=== PATIENT | male | born 1980 | race Caucasian/White ===

== ENCOUNTER → 2021-03-19 13:42 | Outpatient (CLI) | payer OTHER, SELFPAY | PROVIDERS: Visit Provider Family Medicine | DX: M54.50 Low back pain, unspecified (principal) | CPT/HCPCS: 87086 ==

== ENCOUNTER 2021-05-06 14:50 | Emergency (ER) | payer OTHER, SELFPAY ==
[2021-05-06 14:51] VITALS: BP 133/92; PULSE 106; RESP 18; TEMP 36.9; O2SAT 99; BMI 37.0
--- NOTE | 2021-05-06 14:57 | ECG_ITS ---
APPROVED REPORT Exam: Resting ECG HR:99 bpm ECG Measurements Heart Rate 99 AXES MA 146 P 39 QRSd 78 QRS 13 QT 326 T 83 QTc 418 Conclusion Normal sinus rhythm Possible Left atrial enlargement Low voltage QRS Cannot rule out Anterior infarct, age undetermined Abnormal ECG Electronically signed by : Josh Humphreys MD 05/06/2021 21:04:02
--- NOTE | 2021-05-06 15:09 | CT_ITS ---
PROCEDURE: CT ANGIO CHEST CLINCIAL INDICATION: chest pain radiating to back COMPARISON: No exams were available for comparison TECHNIQUE: IV Contrast: 70ML Isovue 370 Axial images obtained with sagittal and coronal reformats. All CT scans at the facility use one or more dose reduction, viz: automated exposure control, ma/kV adjustment per patient size (including targeted exams where dose is matched to indication, i.e. head), or iterative reconstruction technique. FINDINGS: HEART AND MEDIASTINAL STRUCTURES: No evidence of pulmonary embolus, aortic aneurysm, or aortic dissection. No mediastinal or hilar mass or adenopathy LUNGS AND PLEURAL SPACES: No lobar consolidation or collapse. Calcified granuloma is present in the right upper lobe. Subpleural opacity is present in the right CP angle posteriorly nonspecific measuring approximately 6 mm. Calcified granuloma left lower lobe. No suspicious pulmonary nodule. BONY STRUCTURES: Mild degenerative change thoracic spine UPPER ABDOMEN: Fatty liver. The gallbladder is slightly distended. ADDITIONAL FINDINGS: No other significant abnormalities. IMPRESSION: No acute finding. No evidence of aortic dissection. 6 mm subpleural opacity right costophrenic angle posteriorly. Consider 12 month follow-up to confirm stability. Mildly distended gallbladder. Dictated by: Pop Terry MD 05/06/2021 16:10 Pop Terry MD in [place] 05/06/2021 16:10
[2021-05-06 15:15] LABS: Basophils # 0.2 K/mm3 (0-0.2); Basophils % 1.8 % (0.1-2.0); Eosinophils # 0.1 K/mm3 (0.0-0.4); Eosinophils % 1.4 % (0.1-12.0); Hematocrit 49.7 % (42.0-52.0); Hemoglobin 17.8 g/dL (14.1-18.0); Lymphocytes # 2.2 K/mm3 (0.7-4.5); Lymphocytes % 21.6 % (10-50); Mean Corpuscular HGB Conc 35.8 g/dL (31.8-35.4); Mean Corpuscular Hemoglobin 32.4 pg (27.0-31.2); Mean Corpuscular Volume 90.6 fl (80-94); Mean Platelet Volume 7.4 fl (7.4-10.4); Monocytes # 0.6 K/mm3 (0.1-1.0); Monocytes % 6.2 % (1.7-9.3); Neutrophils # 6.9 K/mm3 (1.8-7.8); Neutrophils % 68.9 % (37.0-80.0); Platelet Count 377 K/mm3 (142-424); Red Blood Count 5.49 M/mm3 (4.60-6.20); Red Cell Distribution Width 13.4 % (11.5-17.5); White Blood Count 10.1 K/mm3 (4.8-10.8)
[2021-05-06 15:24] LABS: Chloride 103 mmol/L (98-107); Potassium 4.3 mmoL/L (3.5-5.1); Sodium 140 mmol/L (136-145)
[2021-05-06 15:26] LABS: Alanine Aminotransferase 77 U/L (12-78); Aspartate Amino Transferase 55 U/L (17-59); Blood Urea Nitrogen 19 mg/dl (9-20); Creatinine Clearance Estimated 193 mL/min (50-200); Estimated Glomerular Filt Rate 82 ml/min (>60); GFR (African American) 99 ML/MIN (>60)
[2021-05-06 15:27] LABS: Albumin Level 4.7 g/dl (3.5-5.0); Albumin/Globulin Ratio 1.4 (1.1-1.8); Alkaline Phosphatase 69 U/L (38-126); Anion Gap 13.3 mEq/L (5-15); Bilirubin,Total 0.3 mg/dl (0.2-1.3); Calcium 9.6 mg/dl (8.4-10.2); Carbon Dioxide 28 mmol/L (22.0-30.0); Globulin 3.4 g/dL (1.3-3.2); Glucose 109 mg/dl (74-100); Total Protein,Serum 8.1 g/dl (6.3-8.2)
--- NOTE | 2021-05-06 15:33 | HMH.EDGENADL ---
ED Disposition Clinical Impression: Lung nodule Back pain Qualifiers: Back pain location: thoracic back pain Chronicity: acute Back pain laterality: midline Qualified Code(s): M54.6 - Pain in thoracic spine Disposition: Home, Self-Care Condition on Discharge: Good Additional Instructions: Follow-up with your primary care physician with the next 1 to 3 days, you will need to obtain repeat surveillance imaging on the lung nodule that was noted on today's CT scan of your chest. Okay to take Tylenol, Motrin as needed for pain. Return to ED with new, worsening, concerning symptoms. Referrals: Dk Fraser MD [Primary Care Provider] - - Critical Care Critical Care Time: No Attestation: On 05/06/21, the high probability of a clinically significant, sudden or life threatening deterioration of the following system(s) required my full and direct attention, intervention and personal management. The time I documented below is in addition to time spent performing reported procedures but includes the following listed in this critical care notation. Medical Decision Making - Medical Records Medical records reviewed: Yes: I reviewed the patient's medical records. - Jalil Inquiry Pt receiving controlled substance: No Vital Signs: 05/06/21 14:51 05/06/21 16:12 05/06/21 16:30 Temperature 98.5 F Temperature Source Oral Pulse Rate 95 H 94 H Pulse Rate [Left Radial] 106 H Respiratory Rate 18 16 18 Blood Pressure 149/94 H 150/99 H Blood Pressure [Right Arm] 133/92 H Blood Pressure Mean 109 Blood Pressure Mean [Right Arm] 105 Blood Pressure Source [Right Arm] Automatic Cuff Blood Pressure Position [Right Arm] Sitting 02 Sat by Pulse Oximetry 99 97 98 Oxygen Delivery Method Room Air 05/06/21 17:00 05/06/21 19:10 Temperature 98.5 F Temperature Source Pulse Rate 96 H 96 H Pulse Rate [Left Radial] Respiratory Rate 18 18 Blood Pressure 141/95 H 141/95 H Blood Pressure [Right Arm] Blood Pressure Mean 104 Blood Pressure Mean [Right Arm] Blood Pressure Source [Right Arm] Blood Pressure Position [Right Arm] 02 Sat by Pulse Oximetry 97 Oxygen Delivery Method Room Air - Lab Data Lab Results 05/06/21 15:00: WBC 10.1, RBC 5.49, Hgb 17.8, Hct 49.7, MCV 90.6, MCH 32.4 H, MCHC 35.8 H, RDW 13.4, Plt Count 377, MPV 7.4, Neut % (Auto) 68.9, Lymph % (Auto) 21.6, [place] % (Auto) 6.2, Eos % (Auto) 1.4, Baso % (Auto) 1.8, Neut # (Auto) 6.9, Lymph # (Auto) 2.2, [place] # (Auto) 0.6, Eos # (Auto) 0.1, Baso # (Auto) 0.2 05/06/21 15:00: Sodium 140, Potassium 4.3, Chloride 103, Carbon Dioxide 28, Anion Gap 13.3, BUN 19, Creatinine 1.00, Estimated Creat Clear 193, Estimated GFR 82, Est GFR ( Amer) 99, Glucose 109 H, Calcium 9.6, Total Bilirubin 0.3, AST 55, ALT 77, Alkaline Phosphatase 69, Troponin I < 0.01, NT-Pro-B Natriuret Pep 12.0, Total Protein 8.1, Albumin 4.7, Globulin 3.4 H, Albumin/Globulin Ratio 1.4 Result diagrams: 05/06/21 15:00 05/06/21 15:00 Orders (Tests/Meds): ED MEDICATIONS Discontinued Medications Generic Name Dose Route Start Last Admin Trade Name Freq PRN Reason Stop Dose Admin Iopamidol 100 ml 05/06/21 15:51 05/06/21 15:51 Iopamidol-370 (76%);100ml Bottle IV 05/06/21 15:52 100 ml ONCE ONE Administration Ketorolac Tromethamine 30 mg 05/06/21 17:09 05/06/21 17:20 Ketorolac 30mg/Ml Vial IV 05/06/21 17:10 30 mg ONCE ONE Administration Ondansetron HCl 4 mg 05/06/21 15:13 05/06/21 17:20 Ondansetron 4mg/2ml Vial IV 06/05/21 15:12 4 mg ONCE PRN Administration nausea Sodium Chloride 50 ml 05/06/21 15:51 05/06/21 15:52 0.9 % Sodium Chloride 50 Ml Vial IV 05/06/21 15:52 50 ml ONCE ONE Administration Sodium Chloride 10 ml 05/06/21 15:51 05/06/21 15:51 Sodium Chloride 0.9% 10ml Syr (Rad Only) IV 05/06/21 15:52 10 ml ONCE ONE Administration - CT Data CT Scan: Chest Time Received: 16:[address] Reviewed: Yes:
[2021-05-06 15:45] LABS: Troponin I < 0.01 ng/ml (0.00-0.034)
[2021-05-06 16:12] VITALS: BP 149/94; PULSE 95; RESP 16; O2SAT 97
[2021-05-06 16:30] VITALS: BP 150/99; PULSE 94; RESP 18; O2SAT 98
[2021-05-06 17:00] VITALS: BP 141/95; PULSE 96; RESP 18; O2SAT 97
--- NOTE | 2021-05-06 17:35 | PC.NURSE ---
PT AMBULATED UP TO BATHROOM
[2021-05-06 19:10] VITALS: BP 141/95; PULSE 96; RESP 18; TEMP 36.9; O2SAT 97
== END 2021-05-06 19:12 | disposition home or self-care (01) ==
PROVIDERS: Emergency Provider Emergency Medicine; PCP Family Medicine
DX: R91.1 Solitary pulmonary nodule (principal); M54.6 Pain in thoracic spine; K21.9 Gastro-esophageal reflux disease without esophagitis; I10 Essential (primary) hypertension; F41.9 Anxiety disorder, unspecified
CPT/HCPCS: 71275; 80053; 83880; 84484; 85025; 93005; 96374; 96375; 99282; J2405; Q9967

== ENCOUNTER 2025-01-27 10:28 | Outpatient (CLI) | payer OTHER, SELFPAY ==
[2025-01-27 15:18] LABS: Hematocrit 47.9 % (42.0-52.0); Hemoglobin 16.6 g/dL (14.1-18.0); Immature Granulocytes % 0.5 %; Mean Corpuscular HGB Conc 34.7 g/dL (31.8-35.4); Mean Corpuscular Hemoglobin 31.5 pg (27.0-31.2); Mean Corpuscular Volume 90.9 fl (80-94); Nucleated Red Blood Cells % 0 %; Platelet Count 288 K/mm3 (142-424); Red Blood Count 5.27 M/mm3 (4.60-6.20); Red Cell Distribution Width-SD 41.2 fL; White Blood Count 6.6 K/mm3 (4.8-10.8)
[2025-01-27 15:45] LABS: Albumin Level 4.5 g/dl (3.5-5.0); Chloride 109 mmol/L (98-107); Potassium 4.3 mmoL/L (3.5-5.1); Sodium 139 mmol/L (136-145)
[2025-01-27 15:48] LABS: Alanine Aminotransferase 45 U/L (12-78); Albumin/Globulin Ratio 1.6 (1.1-1.8); Alkaline Phosphatase 70 U/L (38-126); Anion Gap 10.3 mEq/L (5-15); Aspartate Amino Transferase 34 U/L (17-59); Bilirubin,Total 0.6 mg/dl (0.2-1.3); Blood Urea Nitrogen 13 mg/dl (9-20); Carbon Dioxide 24 mmol/L (22.0-30.0); Cholesterol 202 mg/dl (140-200); Creatinine,Serum 0.80 mg/dl (0.66-1.25); Estimated Glomerular Filt Rate 105 ml/min (>60); GFR (African American) 126 ML/MIN (>60); Globulin 2.8 g/dL (1.3-3.2); Total Protein,Serum 7.3 g/dl (6.3-8.2); Triglycerides 344 mg/dl (30-150)
[2025-01-27 15:49] LABS: Calcium 9.2 mg/dl (8.4-10.2); Glucose 110 mg/dl (74-100); HDL Cholesterol 27 mg/dl (40-60)
[2025-01-27 16:19] LABS: Thyroid Stimulating Hormone 1.73 uIU/mL (0.465-4.68)
--- OUTSIDE RECORDS SUMMARY | 2025-01-30 10:30 | XMS_ITS | Clinical Summary ---
Author Organization [facility] [place] Address [address] [address] Phone Care Team Providers Care Crocheter Hand Name Role Phone Dk Fraser MD Primary Care Provider [phone] Allergies No known active allergies Medications hydroCHLOROthiazid e (HYDRODIURIL) 25 mg Oral Tablet 10 10/13/2018 Acti ve ofloxacin (OCUFLOX) 0.3 % Opht Drops 0 10/13/2018 Active amLODIPine (NORVASC) 10 mg Oral Tablet 10 10/13/2018 Active Surgical History Surgery Date Site/Laterality Comments TYMPANOSTOMY TUBE PLACEMENT EAR SURGERY Family History Medical History Relation Name Comments Heart Disease Other mother's side Allergies Neg Hx Bleeding Prob Neg Hx Cancer Neg Hx Hearing Loss Neg Hx Migraines Neg Hx Thyroid Disease Neg Hx Relation Name Status Comments Other mother's side Alive Social History Tobacco Use Types Packs/Day Years Used Date Smoking Tobacco: Never Smokeless Tobacco: Never Sex and Gender Information Value Date Recorded Sex Assigned at Not on file Legal Sex Male 10:25 AM EDT Gender Identity Not on file Sexual Orientation Not on file Obstetrics History Last Filed Vital Signs Vital Sign Reading Time Taken Comments Blood Pressure 139/92 11/01/2018 12:41 PM EDT Pulse 89 11/01/2018 12:41 PM EDT Temperature 37.4 C (99.3 F) 11/01/2018 12:41 PM EDT Respiratory Rate - - Oxygen Saturation - - Inhaled Oxygen Concentration - - Weight 134.4 kg (296 lb 6.4 oz) 019 12:41 PM EDT Height 195.6 cm (6' 5 ) 11/01/2018 12:4 1 PM EDT Body Mass Index 35.15 11/01/2018 12:41 PM EDT Plan of Treatment Health Maintenance Due Date Last Done Comments Annual Wellness Exam 1982 DTaP/TDaP/Td (1 - Tdap) 1998 Hepatitis B Vaccine (1 of 3 - 19+ 3-dose series) 1998 COVID-19 Vaccine ( - 2023-2 5 season) 2024 Cologuard 02/06/2024 Colon Cancer Screening 02/06/2024 Colonoscopy 02/06/2024 FIT 02/06/2024 Sigmoidoscopy 02/06/2024 Virtual Colonography 02/06/2024 Influenza Vaccine (#1) 2025 Meningococcal B Vaccine Aged Out No l onger eligible based on patient's age to complete this topic Pneumococcal Vaccine 0-49 Aged Out No longer eligible based on patient's age to complete this topic Insurance CHOICE PLUS Care Teams Crocheter Hand Relationship Specialty Start Date End Date Dk Fraser MD PCP - General Family Medicine 10/13/18
== END 2025-01-27 23:59 ==
LOC: LAB.DROPOF 01-30 10:28
PROVIDERS: PCP Nurse Practitioner Family; Visit Provider Nurse Practitioner Family
DX: I10 Essential (primary) hypertension (principal); E66.9 Obesity, unspecified
CPT/HCPCS: 80053; 80061; 84443; 85025

== ENCOUNTER 2025-03-21 11:21 | Outpatient (CLI) | payer OTHER, SELFPAY ==
[2025-03-21 08:31] VITALS: BMI 39.2
--- NOTE | 2025-03-21 11:25 | XR_ITS ---
FINAL REPORT CLINICAL HISTORY: preoperative exam related to lung nodule COMPARISON: None FINDINGS: PA and lateral views of the chest were obtained. No acute pulmonary density is evident. There is no evidence of effusion or other pleural disease. The mediastinum has a normal appearance. The cardiac silhouette is unremarkable. IMPRESSION: Unremarkable chest exam. Reviewed, Interpreted and Dictated by Darlin Diaz MD Transcribed by Rama Chen Authenticated and [facility]
--- OUTSIDE RECORDS SUMMARY | 2025-03-21 11:25 | XMS_ITS | Clinical Summary ---
Author Organization [facility] [place] Address [address] [address] Phone Care Team Providers Care Pastoral Counselor Name Role Phone Dk Fraser MD Primary Care Provider [phone] Allergies No known active allergies Medications hydroCHLOROthiazid [...] on file Sexual Orientation Not on file Last Filed Vital Signs Vital Sign Reading [...] of 3 - 19+ 3-dose series) 1998 Cologuard 02/06/2024 Colon Cancer Screening 02/06/2024 Colonoscopy 02/06/2024 FIT 02/06/2024 Sigmoidoscopy 02/06/2024 Virtual Colonography 02/06/2024 COVID-19 Vaccine (1 - 2024-2 6 season) 2025 Influenza Vaccine (#1) 2025 Meningococcal B Vaccine Aged Out No l onger eligible based on patient's age to complete this topic Pneumococcal Vaccine 0-49 Aged Out No longer eligible based on patient's age to complete this topic Insurance CHOICE PLUS Care Teams Pastoral Counselor Relationship Specialty Start Date End Date Dk Fraser MD PCP - General Family Medicine 10/13/18
--- NOTE | 2025-03-21 11:42 | ECG_ITS ---
APPROVED REPORT Exam: Resting ECG HR:81 bpm ECG Measurements Heart Rate 81 AXES KS 157 P 52 QRSd 96 QRS 33 QT 367 T 33 QTc 404 Conclusion SINUS RHYTHM LOW QRS VOLTAGE IN PRECORDIAL LEADS [QRS DEFLECTION < 1.0 mV IN CHEST LEADS] BORDERLINE ECG UNCONFIRMED REPORT Electronically signed by : Josh Humphreys MD 03/24/2025 08:51:46
[2025-03-21 11:55] LABS: Hematocrit 46.9 % (42.0-52.0); Hemoglobin 15.8 g/dL (14.1-18.0); Mean Corpuscular HGB Conc 33.7 g/dL (31.8-35.4); Mean Corpuscular Hemoglobin 30.6 pg (27.0-31.2); Mean Corpuscular Volume 90.7 fl (80-94); Platelet Count 282 K/mm3 (142-424); Red Blood Count 5.17 M/mm3 (4.60-6.20); White Blood Count 8.0 K/mm3 (4.8-10.8)
[2025-03-21 12:00] LABS: Chloride 100 mmol/L (98-107); Potassium 3.7 mmoL/L (3.5-5.1); Sodium 140 mmol/L (136-145)
[2025-03-21 12:03] LABS: Anion Gap 12.7 mEq/L (5-15); Blood Urea Nitrogen 15 mg/dl (9-20); Carbon Dioxide 31 mmol/L (22.0-30.0); Creatinine Clearance Estimated 196 mL/min (50-200); Creatinine,Serum 1.00 mg/dl (0.66-1.25); Estimated Glomerular Filt Rate 80 ml/min (>60); GFR (African American) 97 ML/MIN (>60)
[2025-03-21 12:04] LABS: Calcium 8.7 mg/dl (8.4-10.2); Glucose 104 mg/dl (74-100)
[2025-03-21 14:27] LABS: Total Cells Counted 100
[2025-03-21 14:28] LABS: RBC Morphology Normal
== END 2025-03-21 23:59 | disposition home or self-care (01) ==
LOC: PREOP 11:22
PROVIDERS: PCP Family Medicine; Visit Provider Otolaryngology
DX: Z01.810 Encounter for preprocedural cardiovascular examination (principal); Z01.811 Encounter for preprocedural respiratory examination; Z01.812 Encounter for preprocedural laboratory examination; R91.1 Solitary pulmonary nodule; R94.31 Abnormal electrocardiogram [ECG] [EKG]
CPT/HCPCS: 71046; 80048; 85007; 85014; 85018; 85048; 85049; 93005

== ENCOUNTER 2025-03-27 06:25 | Day surgery (SDC) | payer OTHER, SELFPAY ==
[2025-03-21 14:12] VITALS: BMI 39.2
[2025-03-27] VITALS (9 sets, daily range): BP systolic 145–185; BP diastolic 90–109; PULSE 73–98; RESP 16–20; TEMP 36.2–36.6; O2SAT 94–99
[2025-03-27] MEDS: LACTATED RINGERS 1000ML 1,000 ML 25 ML IV (06:45)
--- NOTE | 2025-03-27 07:00 | EXP.ANES.CKL ---
[facility] Disclaimer: The information contained in this section may have been updated after the patient was seen, as this information can be updated by other users. Medical History Perforated tympanic membrane of both ears on examination Pre-op examination Back pain Lung nodule Essential hypertension Surgical History S/p bilateral myringotomy with tube placement No history of previous surgery Family History Father Diabetes Social History Smoking Status: Never smoker alcohol intake: current alcohol intake frequency: holidays/special occasions only substance use type: denies use current occupational status: employed Travel in the last 8 weeks?: None Have you lived/traveled outside [place] in past 30 days?: No Contact w/someone who lives/traveled outside US past 30 days?: No Exposure to someone with infectious disease in past 14 days?: No Do you have a fever (greater than 100.4 F or 38 C)?: No Have you tested positive for COVID-19?: No Exposed to someone with COVID-19 in past 14 days?: No Do you have a sore throat?: No Do you have a cough?: No Do you have any weakness?: No Do you have any diarrhea?: No Are you experiencing any unusual bleeding?: No Do you have any muscle aches/pain?: No Do you have any abdominal pain?: No Are you experiencing loss of taste or smell?: No [facility] Anesthesia Checklist Patient Identification Patient Identification: Arm Band and Verbal (Name & ) Structural Data Admitted From: Home Planned Operative Procedure/s: Tampynoplasty Consent for Planned Operative Procedure(s) Verified: Yes Verified Documents: Surgical Consent and History and Physical NPO Status Verified Time NPO: 00:00 Additional verifications Anesthesia Reactions: No Hx Blood Transfusions: No Blood Transfusion Reaction: No Airway Assessment Mallampati Score:: Class III Dentition: Good Dentition Neurological Assessment Level of Consciousness: Awake, Alert and Appropriate Hx Seizures: No Numbness or tingling in extremities: No Anesthesia Plan Anesthesia Risk discussed: Yes Anesthesia Plan: Verified ASA Class: II Anesthesia Type: General
[2025-03-27] MEDS: 0.9 % SODIUM CHLORIDE 100 ML 200 ML IV (08:10)
[2025-03-27] MEDS: CEFAZOLIN 2GM VIAL 2 GM (08:10)
[2025-03-27] MEDS: EPINEPHrine 1MG/ML 30ML VIAL 30 MG (08:30)
[2025-03-27] MEDS: LIDOCAINE 1% W/EPI 1:100,000 20ML VIAL 20 ML (08:30)
[2025-03-27] MEDS: CIPRO 0.3%-DEX 0.1% OTIC SUSP 7.5ML 7.5 ML OT (08:30)
[2025-03-27] MEDS: MUPIROCIN 2% OINTMENT 22GM TUBE 22 GM TP (08:30)
--- NOTE | 2025-03-27 09:34 | P.OP_ITS ---
Date of procedure: 03/27/25 Pre-op Diagnosis:: Left tympanic membrane perforation Post-op Diagnosis:: Left tympanic membrane perforation Procedure performed:: Same Surgeon:: Baldomero Freeman III, MD Lab Support Service Tech(s):: None INTERNAL MEDICINE HOSPITALIST:: Jai Don Anesthesia: GETA Estimated blood loss (mL): 30 Operative findings:: Generous central perforation left ear Operative note:: The patient was brought to the operating room placed under general endotracheal anesthesia with an LMA tube. The left ear was prepared and draped in the usual fashion. I preinjected with 1% lidocaine with epinephrine into the left postauricular area and the external auditory canal. The perforation was noted to be centrally located and under microscopic guidance I was able to de- epithelialize the periphery of the perforation extending up onto the malleus. The remnant of the malleus was freed to allow for graft placement. I elevated the tympanomeatal flap. Of note there was significant oozing noted during this portion of the procedure. Topical epinephrine on cottonoids were placed within the middle ear to help control this. A postauricular incision was then made, access to the temporalis fascia was gained and 2 discs of temporalis fascia were harvested. The incision was then closed with 5-0 Monocryl in the subcutaneous layer and a running 5-0 fast absorbing gut in the skin. This was then dressed. Attention was then turned back towards the middle ear. The adrenaline soaked cottonoid was removed the precut Gelfoam was then placed in the middle ear space. I used the 2 grafts and placed them into the perforation site as an underlay technique. The tympanic white meatal flap was then returned back to its natural position. The grafts were then teased into position to provide coverage for the perforation site. Gelfoam was then placed lateral to this followed by Gelfoam infiltrated with antibiotic drops followed by mupirocin ointment. Patient was then awakened in the operating room taken recovery room in good condition and the estimated blood loss was approximately 30 mL. Condition: stable Disposition: PACU Complications:: None
--- NOTE | 2025-03-27 09:40 | P.PNANES_ITS ---
[facility] Anesthesia Record Part I Anesthesia Record I Intake, IV Amount: 700 Hydration: Adequate Estimated blood loss (mL): 5 Urine output (mL): 0 Blood Products used (#): none Blood Pressure: 161/109 SaO2: 94 Pulse Rate: 81 Airway Patency: Patent Respiratory Rate: 20 Temperature: 97.3 F Patient is:: Nasal O2, Stable and Somnolent Stable to PACU at:: 09:36
== END 2025-03-27 10:36 | disposition home or self-care (01) ==
PROVIDERS: PCP Family Medicine; Visit Provider Otolaryngology
PROC: (CPT 69610; principal; 2025-03-27 08:00)
DX: H72.92 Unspecified perforation of tympanic membrane, left ear (principal); I10 Essential (primary) hypertension; Z96.22 Myringotomy tube(s) status; Z79.899 Other long term (current) drug therapy
CPT/HCPCS: 69610; 96374; J0169; J0690; J1100; J1171; J2003; J2004; J2250; J2405; J2704; J3010; J7120